=== PATIENT | male | born 1960 | race Caucasian/White ===

== ENCOUNTER 2017-03-09 12:04 | Outpatient (CLI) ==
[2017-03-09 14:15] LABS: ALBUMIN 1.8 g/dL (3.4-5.0); ALBUMIN/GLOBULIN RATIO 0.39; ANION GAP 16.5; BUN/CREATININE RATIO 17.34; CALCIUM 8.1 mg/dL (8.2-10.2); CHOL/HDL RATIO 18.4 (4.5-6.4); CREATININE 0.98 mg/dL (0.60-1.10); POTASSIUM 3.5 mmol/L (3.5-5.1); TOTAL PROTEIN 6.4 g/dL (6.4-8.2)
[2017-03-09 15:01] LABS: BILIRUBIN,TOTAL 27.31 mg/dL (0.00-1.20)
== END 2017-03-09 12:05 | disposition home or self-care (01) ==
LOC: LAB 12:04
PROVIDERS: ATTEND Nurse Practitioner Family
DX: Z51.81 Encounter for therapeutic drug level monitoring (principal); R56.9 Unspecified convulsions; K70.31 Alcoholic cirrhosis of liver with ascites; E87.6 Hypokalemia; R17 Unspecified jaundice; Z12.5 Encounter for screening for malignant neoplasm of prostate; Z79.899 Other long term (current) drug therapy
CPT/HCPCS: 36415; 80053; 80061; 82542

== ENCOUNTER 2017-03-17 08:36 | Outpatient (CLI) | END 2017-03-17 08:37 | disposition home or self-care (01) | LOC: AMBL 08:36 | PROVIDERS: ATTEND Internal Medicine | DX: R10.9 Unspecified abdominal pain (principal); R11.2 Nausea with vomiting, unspecified; E11.9 Type 2 diabetes mellitus without complications; K59.00 Constipation, unspecified; R14.0 Abdominal distension (gaseous); R00.0 Tachycardia, unspecified ==